=== PATIENT | male | born 1950 | race Caucasian/White ===

== ENCOUNTER 2017-04-14 05:53 | Emergency (ER) | payer OTHER, BC ==
[~2017-04-14] VITALS: Ht 177.8 cm; Wt 82.6 kg
[~2017-04-14 05:53] MED LIST: CELEBREX50 MG PO; COUMADIN2.5 MG PO; EPIPEN ADU0.3 MG/0.3 IM; FELODIPINE ER5 MG PO; INDERIDE 40/1 TABLET PO; LISINOPRIL40 MG PO; NORCO 10/3251 TABLET PO; ZANTAC150 MG PO
[2017-04-14 06:31] LABS: HEMATOCRIT 45.4 % (38.0-50.0); MCH 31.3 PG (29.0-34.0); MCHC 34.6 G/DL (30.0-36.0); MCV 90.4 FL (86-99); MEAN PLAT.VOLUME 9.1 uM^3 (9.0-12.4); PLATELET COUNT 215 K/uL (156-360); RBC DIS.WIDTH-CV 12.5 % (11.8-14.6); RBC DIS.WIDTH-SD 41.1 % (39-53); RED BLOOD COUNT 5.02 M/uL (4.00-5.50); WHITE BLOOD COUNT 6.7 K/uL (4.1-10.2)
[2017-04-14 06:52] LABS: TROP-I INTERPRETATION NEGATIVE; TROPONIN-I < 0.01 ng/mL (0.0-0.30)
[2017-04-14 07:11] LABS: ANION GAP 8 MEQ/L (2-14); CHLORIDE 104 MEQ/L (99-109); GFR ESTIMATE (CALCULATED) > 59 mL/min/; GLUCOSE 117 mg/dL (70-99); SAMPLE HEMOLYSIS CHECK 0; SAMPLE ICTERIC CHECK 0; SAMPLE LIPEMIA CHECK 0; SODIUM 139 MEQ/L (136-147); UREA NITROGEN (BUN) 11 mg/dL (9-23)
[2017-04-14 10:52] LABS: TROP-I INTERPRETATION NEGATIVE; TROPONIN-I < 0.01 ng/mL (0.0-0.30)
[2017-04-14 11:00] VITALS: BP 128/85
== END 2017-04-14 11:17 | disposition home or self-care (01) ==
LOC: EME 05:53
PROVIDERS: Emergency Medicine
DX: M79.622 Pain in left upper arm (principal); R07.9 Chest pain, unspecified; I44.0 Atrioventricular block, first degree; I10 Essential (primary) hypertension; Z82.49 Family history of ischemic heart disease and other diseases of the circulatory system
CPT/HCPCS: 71020; 80048; 84484; 85027; 93005; 99281; 99283